=== PATIENT | male | born 1950 | race Caucasian/White ===

== ENCOUNTER 2018-11-23 22:02 | Emergency (ER) | payer MEDICARE, OTHER ==
[~2018-11-23] VITALS: Ht 167.6 cm; Wt 81.6 kg
[~2018-11-23 22:02] MED LIST: ALLO100T PO; ASPI-482 PO; CELE200C PO; LISI10TA2 PO; SIMV20TA3 PO
[2018-11-23 22:10] VITALS: BP 122/73
[2018-11-23] MEDS ORDERED: MELO7.5T5 PO (22:38)
[2018-11-23] MEDS ORDERED: HYDR-3165 PO (22:38)
--- NOTE | 2018-11-23 22:43 | ED.ADGEN ---
Past History Past Medical History: Arthritis, High Cholesterol, Hypertension, Other Past Surgical History: Other Smoking: Less than 1pk/day, Cigar Alcohol Use: Occasionally Drug Use: None Adult General Chief Complaint Chief Complaint earache HPI HPI 68 years old male presented to the emergency department with left ear pain he stated that he was seen and evaluated at the [facility] was prescribed Maxitrol he stated his symptoms improve however he continued to have pain. He stated that he was seen and evaluated by ENT in August for the same pain into [facility] they could not find the reason for his pain. No fever no chills no urgency no frequency no hematuria no headache no focal neurological symptoms or findings Review of Systems Review of Systems Constitutional: Denies fever or chills [] Eyes: Denies change in visual acuity, redness, or eye pain [] HENT: Denies nasal congestion or sore throat [] Respiratory: Denies cough or shortness of breath [] Cardiovascular: No additional information not addressed in HPI [] GI: Denies abdominal pain, nausea, vomiting, bloody stools or diarrhea [] : Denies dysuria or hematuria [] Musculoskeletal: Denies back pain or joint pain [] Integument: Denies rash or skin lesions [] Neurologic: Denies headache, focal weakness or sensory changes [] Endocrine: Denies polyuria or polydipsia [] All other systems were reviewed and found to be within normal limits, except as documented in this note. Current Medications Current Medications Current Medications Medications (Trade) Dose Ordered Sig/Joann Start Time Stop Time Status Last Admin Dose Admin Acetaminophen/ Hydrocodone Bitart (Lortab 5/325) 2 tab 1X ONCE 11/23/18 22:45 11/23/18 22:46 UNV Ibuprofen (Motrin) 600 mg 1X ONCE 11/23/18 22:45 11/23/18 22:46 UNV Allergies Allergies Allergies Coded Allergies Type Severity Reaction Last Updated Verified No Known Drug Allergies 03/10/14 No Physical Exam Physical Exam Constitutional: Well developed, well nourished, no acute distress, non-toxic appearance. [] HENT: Normocephalic, atraumatic, bilateral external ears hematologic blister in the left ear canal minimal redness in the left ear oropharynx moist, no oral exudates, nose normal. [] Eyes: PERRLA, EOMI, conjunctiva normal, no discharge. [] Neck: Normal range of motion, no tenderness, supple, no stridor. [] Cardiovascular:Heart rate regular rhythm, no murmur [] Lungs & Thorax: Bilateral breath sounds clear to auscultation [] Abdomen: Bowel sounds normal, soft, no tenderness, no masses, no pulsatile masses. [] Skin: Warm, dry, no erythema, no rash. [] Back: No tenderness, no CVA tenderness. [] Extremities: No tenderness, no cyanosis, no clubbing, ROM intact, no edema. [] Neurologic: Alert and oriented X 3, normal motor function, normal sensory function, no focal deficits noted. [] Psychologic: Affect normal, judgement normal, mood normal. [] EKG EKG [] Radiology/Procedures Radiology/Procedures [] Course & Med Decision Making Course & Med Decision Making Pertinent Labs and Imaging studies reviewed. (See chart for details) [] Final Impression Final Impression [] Problems: (1) Otitis externa Qualifiers: Qualified Codes: H60.322 - Hemorrhagic otitis externa, left ear Dragon Disclaimer Dragon Disclaimer This electronic medical record was generated, in whole or in part, using a voice recognition dictation system. SANDRA TINAJERO MD Nov 23, 2018 22:43
[2018-11-23] MEDS ORDERED: IBUPROFEN 600 MG TABLET. PO ONE (22:45)
[2018-11-23] MEDS ORDERED: HYDROcodone/APAP 5/325MG 1 TAB TABLET PO ONE (22:45)
== END 2018-11-23 22:55 | disposition home or self-care (01) ==
LOC: ER 22:02
DX: H60.322 Hemorrhagic otitis externa, left ear (principal); M19.90 Unspecified osteoarthritis, unspecified site; E78.00 Pure hypercholesterolemia, unspecified; I10 Essential (primary) hypertension; F17.210 Nicotine dependence, cigarettes, uncomplicated
CPT/HCPCS: 99283

== ENCOUNTER 2019-02-07 06:57 | Emergency (ER) | payer MEDICARE, OTHER ==
[~2019-02-07] VITALS: Ht 167.6 cm; Wt 81.6 kg
[2019-02-07 06:57] VITALS: BP 123/80
[~2019-02-07 06:57] MED LIST changes: +HYDR-3165 PO; +MELO7.5T5 PO
[2019-02-07] MEDS ORDERED: FLUORESCEIN 1MG EYE STRIP. OD ONE (07:30)
[2019-02-07] MEDS ORDERED: ERYTHROMYCIN 0.5% OPHTH OINTMENT 1GM TUBE. OD ONE (07:30)
[2019-02-07] MEDS ORDERED: TETRACAINE 0.5% OPHTH SOLUTION 4ML BOTTLE. OD ONE (07:30)
[2019-02-07] MEDS ORDERED: ERYT1OIN6 OP (07:59)
--- NOTE | 2019-02-07 08:02 | PHYS DOC ---
Past History Past Medical History: Arthritis, High Cholesterol, Hypertension, Other Past Surgical History: Other Smoking: Cigarettes, Less than 1pk/day, Cigar Alcohol Use: Occasionally Drug Use: None Adult General Chief Complaint Chief Complaint: EYE PROBLEMS HPI HPI 68-year-old male presents with report of right upper eyelid swelling and redness which started yesterday. Reports upon waking this morning significant worsening. Patient denies use of contacts. Patient reports using Imiquimod cream 5% to left [facility] for some precancerous skin lesions. Patient reports he has been very careful not to get this medication into his eyes. Patient reports if he might have inadvertently gotten this cream in his eye. Patient does report some right eye discomfort. Denies any discharge. Denies fever or chills. Denies known tra alon. Review of Systems Review of Systems Constitutional: Denies fever or chills Eyes: Reports right upper eyelid swelling and erythema; reports some eye discomfort HENT: Denies nasal congestion or sore throat Respiratory: Denies cough or shortness of breath Cardiovascular: Denies chest pain or palpitations GI: Denies abdominal pain, nausea, or vomiting : Denies dysuria or hematuria Musculoskeletal: Denies back pain or joint pain Integument: Reports eyelid swelling and erythema Neurologic: Denies headache, focal weakness or sensory changes Complete systems were reviewed and found to be within normal limits, except as documented in this note. Current Medications Current Medications Current Medications Medications (Trade) Dose Ordered Sig/Joann Start Time Stop Time Status Last Admin Dose Admin Erythromycin (Romycin) 0.25 inch 1X ONCE 02/07/19 07:30 02/07/19 07:32 DC Fluorescein Sodium (Ful-Shahida 1mg) 1 strip 1X ONCE 02/07/19 07:30 02/07/19 07:32 DC Tetracaine HCl (Tetracaine) 2 drop 1X ONCE 02/07/19 07:30 02/07/19 07:32 DC Allergies Allergies Allergies Coded Allergies Type Severity Reaction Last Updated Verified No Known Drug Allergies 03/10/14 No Physical Exam Physical Exam Constitutional: Well developed, well nourished, no acute distress, non-toxic appearance HENT: Normocephalic, atraumatic, oropharynx moist Eyes: PERRL, EOMI, conjunctiva mildly injected on right, no discharge, right upper eyelid erythema and edema noted, no focal induration/fluctuance, no fluorescein uptake, no retained foreign body Neck: Normal range of motion, no tenderness, supple Skin: Warm, dry, mild erythema and edema to right upper eyelid Extremities: No tenderness, ROM intact Neurologic: Alert and oriented X 3, no focal deficits noted Psychologic: Affect normal, judgement normal, mood normal EKG EKG [] Radiology/Procedures Radiology/Procedures [] Course & Med Decision Making Course & Med Decision Making Patient presents with history of present illness and physical exam concerning for right upper eyelid left otitis versus stye. No fluorescein uptake to cornea. Empiric antibody ointment applied. Patient advised to use warm compresses. Patient stable for discharge with outpatient follow-up with PCP/adult specialist. Discussed findings and plan with patient, who acknowledges understanding and agreement. Dragon Disclaimer Dragon Disclaimer This electronic medical record was generated, in whole or in part, using a voice recognition dictation system. Departure Departure: Impression: Primary Impression: Eyelid edema Disposition: HOME, SELF-CARE Condition: STABLE Referrals: PCP,NO (PCP) Patient Instructions: Blepharitis, [id number], Sty Additional Instructions: Please follow closely with your eye doctor for further evaluation and treatment. Scripts Erythromycin Base (Erythromycin) 1 Gm Oint...g. 0.25 INCH OP QID for Blephritis for 7 Days, #1 TUBE Prov: ELAINE CHIANG DO 02/07/19 Problem Qualifiers Primary Impression: Eyelid edema Laterality: right Qualified Codes: H02.843 - Edema of right eye, unspecified eyelid ELAINE CHIANG DO Feb 07, 2019 08:01
== END 2019-02-07 08:00 | disposition home or self-care (01) ==
LOC: ER 06:57
DX: H02.844 Edema of left upper eyelid (principal); L98.8 Other specified disorders of the skin and subcutaneous tissue; M19.90 Unspecified osteoarthritis, unspecified site; E78.00 Pure hypercholesterolemia, unspecified; I10 Essential (primary) hypertension; F17.210 Nicotine dependence, cigarettes, uncomplicated
CPT/HCPCS: 99283